=== PATIENT | female | born 1940 | race Caucasian/White ===

== ENCOUNTER 2025-02-07 14:38 | Inpatient (IN) | payer OTHER ==
[~2025-02-07] VITALS: Ht 160 cm; Wt 67.4 kg
[2025-02-07 15:23] VITALS: BP 163/69
[2025-02-07 15:53] LABS: BASO # 0.0 10*3/uL (0.0-0.1); BASO % 0.4 % (0.0-1.0); EOS # 0.0 10*3/uL (0.0-0.4); EOS % 0.0 % (1.0-4.0); MEAN CELL VOLUME 97.6 fl (81.0-99.0); MEAN CORPUSCULAR HGB 32.3 pg (27.0-31.0); MEAN PLATELET VOLUME 10.3 fl (9.6-12.3); MONO # 0.8 10*3/uL (0.1-1.0); MONO % 7.8 % (3.0-9.0); NEUT # 7.3 10*3/uL (2.3-7.9); NEUT % 73.0 % (47.0-73.0); NUCLEATED RED BLOOD CELL 0.0 % (0.0-0.0); NUCLEATED RED BLOOD CELL 0.0 10*3/uL (0.0-0.0); PLATELET COUNT AUTOMATED 317 10*3/uL (130-400); RED CELL DISTRI WIDTH 13.6 % (0-14.5)
[2025-02-07 16:09] LABS: ACT PARTIAL THROMBO TIME 29.8 SECONDS (20.0-32.1)
[2025-02-07 16:20] LABS: BUN 21 mg/dl (9-23); CPK 105 U/L (34-171); SGPT/ALT 14 U/L (5-49)
[2025-02-07 16:23] LABS: ETHYL ALCOHOL < 3.0 mg/dl (<3)
[2025-02-07 16:59] LABS: BILIRUBIN Negative (Negative); BLOOD 3+ (Negative); CLARITY Cloudy (Clear); COLOR Yellow (Yellow); KETONE 1+ (Negative); LEUKO ESTERASE Trace (Negative); NITRITE Negative (Negative); PH 5.5 (4.5-8.0); SPECIFIC GRAVITY 1.020 (1.001-1.030); UROBILINOGEN 1.0 E.U./dl (0.0-1.0)
[2025-02-07 17:12] LABS: URINE AMPHETAMINES Negative (1000ng/ml); URINE BARBITURATES Negative (200ng/ml); URINE BENZODIAZEPINES Negative (200ng/ml); URINE CANNABINOIDS (THC) Negative (50ng/ml); URINE COCAINE Negative (300ng/ml); URINE METHADONE Negative (300ng/ml); URINE OPIATES Negative (300ng/ml); URINE PHENCYCLIDINE Negative (25ng/ml)
[2025-02-07 17:19] LABS: BACTERIA 1+; EPITHELIAL CELLS 16-20; RBC 41-50 rbc/hpf (0-2)
[2025-02-07 20:47] VITALS: BP 100/64
[2025-02-07] MEDS ORDERED: LORazepam 1 MG TAB PO PRN (20:50)
[2025-02-07] MEDS ORDERED: hydrOXYzine hydrochloride 50 MG/ML VIAL IM PRN (20:50)
[2025-02-07 21:56] VITALS: BP 142/86
[2025-02-08] MEDS ORDERED: Menthol/Zinc Oxide 4 GM THIN T PRN (00:30)
[2025-02-08] MEDS ORDERED: ACETAMINOPHEN 325 MG TAB PO PRN (00:30)
[2025-02-08] MEDS ORDERED: MG-AL HYDROXIDE/SIMETICONE 30 ML UDC PO PRN (00:30)
[2025-02-08] MEDS ORDERED: LEXAPRO10 MG PO (01:50)
[2025-02-08] MEDS ORDERED: LEVOTHYROXINE100 MC1 PO (01:53)
[2025-02-08] MEDS ORDERED: MEMANTINE HCL5 MG PO (01:55)
[2025-02-08] MEDS ORDERED: SYSTANE ULTRA 010 M1 OU (01:56)
[2025-02-08] MEDS ORDERED: VALSARTAN-HCTZ1 EAC1 PO (01:57)
[2025-02-08] MEDS ORDERED: VITAMIN D350 MC2 PO (01:58)
[2025-02-08] MEDS ORDERED: TIMOLOL MALEAT OU (02:00)
[2025-02-08] MEDS ORDERED: DONEPEZIL HCL10 MG PO (02:01)
[2025-02-08] MEDS ORDERED: SEROQUEL50 MG PO (02:04)
[2025-02-08] MEDS ORDERED: Kenalog 0.5% Oi15 GM T (02:05)
[2025-02-08] MEDS ORDERED: [UNRECOGNIZED DRUG - OTHER] PO (02:13)
[2025-02-08] MEDS ORDERED: ATIVAN ORAL C2 MG/ML PO (02:18)
[2025-02-08] MEDS ORDERED: NYAMYC15 GM T (02:34)
[2025-02-08] MEDS ORDERED: SARNA SENSITIV222 ML T (02:35)
[2025-02-08] MEDS ORDERED: SYSTANE 0.3-0.415 ML OU (02:37)
[2025-02-08] MEDS ORDERED: Memantine Hydrochloride 5 MG TAB PO SCH (09:00)
[2025-02-08] MEDS ORDERED: risperiDONE 0.5 MG TAB PO SCH (09:00)
[2025-02-08] MEDS ORDERED: Rivastigmine Tartrate 4.6 MG/24 HR PATCH T SCH (09:00)
[2025-02-08 09:12] LABS: LDL CHOLESTEROL 178.0 mg/dL (9-159)
[2025-02-08 10:57] LABS: VITAMIN D, 25-HYDROXY 47.5 ng/mL (30-100)
[2025-02-08 20:00] VITALS: BP 133/77
[2025-02-08] MEDS ORDERED: Mirtazapine 15 MG TAB PO SCH (21:00)
[2025-02-08] MEDS ORDERED: ATORVASTATIN CALCIUM 20 MG TAB PO SCH (21:00)
[2025-02-08] MEDS ORDERED: DONEPEZIL 10 MG TAB PO SCH (22:00)
[2025-02-09 08:57] VITALS: BP 142/60
[2025-02-09] MEDS ORDERED: CYANOCOBALAMIN 1,000 MCG/ML VIAL IM SCH (09:00)
[2025-02-09 20:00] VITALS: BP 114/70
[2025-02-10 08:00] VITALS: BP 145/66
[2025-02-10 20:00] VITALS: BP 129/40
[2025-02-11 08:05] VITALS: BP 151/76
[2025-02-11 12:29] LABS: BUN 30.0 mg/dl (9-23)
[2025-02-11 13:52] LABS: BILIRUBIN Negative (Negative); BLOOD Negative (Negative); CLARITY Cloudy (Clear); COLOR Yellow (Yellow); KETONE Trace (Negative); LEUKO ESTERASE Trace (Negative); NITRITE Negative (Negative); PH 5.0 (4.5-8.0); SPECIFIC GRAVITY 1.015 (1.001-1.030); UROBILINOGEN 0.2 E.U./dl (0.0-1.0)
[2025-02-11 14:13] LABS: BACTERIA 4+; EPITHELIAL CELLS 21-30
[2025-02-11 20:00] VITALS: BP 130/70
[2025-02-12 08:08] VITALS: BP 157/78
[2025-02-12] MEDS ORDERED: Rivastigmine Tartrate 9.5 MG/24 HR PATCH T SCH (09:00)
[2025-02-12] MEDS ORDERED: HALOPERIDOL DECANOATE 50 MG/ML AMP IM SCH (09:40)
[2025-02-12 20:00] VITALS: BP 149/57
[2025-02-13 08:38] VITALS: BP 145/62
[2025-02-13 20:00] VITALS: BP 118/48
[2025-02-14 07:09] LABS: BASO # 0.1 10*3/uL (0.0-0.1); BASO % 0.5 % (0.0-1.0); EOS # 0.0 10*3/uL (0.0-0.4); EOS % 0.1 % (1.0-4.0); MEAN CELL VOLUME 97.0 fl (81.0-99.0); MEAN CORPUSCULAR HGB 31.9 pg (27.0-31.0); MEAN PLATELET VOLUME 10.7 fl (9.6-12.3); MONO # 1.5 10*3/uL (0.1-1.0); MONO % 12.1 % (3.0-9.0); NEUT # 8.0 10*3/uL (2.3-7.9); NEUT % 66.3 % (47.0-73.0); NUCLEATED RED BLOOD CELL 0.0 % (0.0-0.0); NUCLEATED RED BLOOD CELL 0.0 10*3/uL (0.0-0.0); PLATELET COUNT AUTOMATED 308 10*3/uL (130-400); RED CELL DISTRI WIDTH 13.9 % (0-14.5)
[2025-02-14 07:32] LABS: BUN 30 mg/dl (9-23)
[2025-02-14 07:35] LABS: BUN 30 mg/dl (9-23); SGPT/ALT 16 U/L (5-49)
[2025-02-14 08:00] VITALS: BP 130/53
[2025-02-14] MEDS ORDERED: RIVASTIGMINE 13.3 MG/24 HR TDM T SCH (09:00)
[2025-02-14 20:00] VITALS: BP 124/54
[2025-02-15 07:15] LABS: BASO # 0.1 10*3/uL (0.0-0.1); BASO % 0.7 % (0.0-1.0); EOS # 0.5 10*3/uL (0.0-0.4); EOS % 4.1 % (1.0-4.0); MEAN CELL VOLUME 97.3 fl (81.0-99.0); MEAN CORPUSCULAR HGB 32.1 pg (27.0-31.0); MEAN PLATELET VOLUME 10.7 fl (9.6-12.3); MONO # 1.3 10*3/uL (0.1-1.0); MONO % 10.7 % (3.0-9.0); NEUT # 7.7 10*3/uL (2.3-7.9); NEUT % 63.9 % (47.0-73.0); NUCLEATED RED BLOOD CELL 0.0 % (0.0-0.0); NUCLEATED RED BLOOD CELL 0.0 10*3/uL (0.0-0.0); PLATELET COUNT AUTOMATED 325 10*3/uL (130-400); RED CELL DISTRI WIDTH 13.7 % (0-14.5)
[2025-02-15 08:00] VITALS: BP 121/60
[2025-02-15 20:00] VITALS: BP 113/52
[2025-02-16 08:00] VITALS: BP 133/69
[2025-02-16 20:00] VITALS: BP 136/72
[2025-02-17 08:00] VITALS: BP 122/59
[2025-02-17] MEDS ORDERED: HALOPERIDOL DECANOATE 50 MG/ML AMP IM ONE (08:45)
[2025-02-17 20:00] VITALS: BP 126/60
[2025-02-18 08:00] VITALS: BP 125/63
[2025-02-18 20:00] VITALS: BP 151/63
[2025-02-19 07:25] LABS: BUN 53.0 mg/dl (9-23)
[2025-02-19] MEDS ORDERED: SODIUM CHLORIDE 0.9% 1,000 ML IV ONE (09:00)
[2025-02-19 09:20] VITALS: BP 138/79
[2025-02-19] MEDS ORDERED: ZINC SULFATE 220 MG TAB PO SCH (12:00)
[2025-02-19] MEDS ORDERED: Ondansetron Hydrochloride 4 MG/2 ML VIAL IV ONE (19:10)
[2025-02-19] MEDS ORDERED: DIAZEPAM IV ONE (19:22)
[2025-02-19] MEDS ORDERED: Ondansetron Hydrochloride 4 MG/2 ML VIAL ONE (19:29)
[2025-02-19 20:00] VITALS: BP 136/62
[2025-02-20 08:10] LABS: BUN 63.0 mg/dl (9-23)
[2025-02-20 08:38] VITALS: BP 134/66
[2025-02-20 08:50] LABS: BASO # 0.0 10*3/uL (0.0-0.1); BASO % 0.2 % (0.0-1.0); EOS # 0.0 10*3/uL (0.0-0.4); EOS % 0.0 % (1.0-4.0); MEAN CELL VOLUME 100.8 fl (81.0-99.0); MEAN CORPUSCULAR HGB 32.6 pg (27.0-31.0); MEAN PLATELET VOLUME 11.4 fl (9.6-12.3); MONO # 1.2 10*3/uL (0.1-1.0); MONO % 8.2 % (3.0-9.0); NEUT # 11.3 10*3/uL (2.3-7.9); NEUT % 78.9 % (47.0-73.0); NUCLEATED RED BLOOD CELL 0.0 % (0.0-0.0); NUCLEATED RED BLOOD CELL 0.0 10*3/uL (0.0-0.0); PLATELET COUNT AUTOMATED 230 10*3/uL (130-400); RED CELL DISTRI WIDTH 14.1 % (0-14.5)
[2025-02-20] MEDS ORDERED: SODIUM CHLORIDE 0.9% 1,000 ML IV ONE (09:55)
[2025-02-20 10:33] LABS: ABG BASE EXCESS 4.4 mmol/L (-2.0-3.0); ABG O2 SATURATION 95.8 % (94.0-98.0); ARTERIAL BLOOD GAS PH 7.45 (7.350-7.450); ARTERIAL BLOOD GAS PO2 77.9 mmHg (83.0-108.0)
[2025-02-20 11:18] LABS: BILIRUBIN Negative (Negative); BLOOD Negative (Negative); CLARITY Clear (Clear); COLOR Yellow (Yellow); KETONE Negative (Negative); LEUKO ESTERASE Negative (Negative); NITRITE Negative (Negative); PH 5.0 (4.5-8.0); SPECIFIC GRAVITY 1.015 (1.001-1.030); UROBILINOGEN 0.2 E.U./dl (0.0-1.0)
[2025-02-20 11:25] LABS: BACTERIA 2+; EPITHELIAL CELLS 0-2; RBC 0-2 rbc/hpf (0-2)
[2025-02-20 11:26] LABS: WBC 0-2 wbc/hpf (0-5)
[2025-02-20] MEDS ORDERED: Ondansetron Hydrochloride 4 MG TAB PO PRN (11:40)
[2025-02-20 20:00] VITALS: BP 139/62
[2025-02-21 06:45] LABS: BASO # 0.1 10*3/uL (0.0-0.1); BASO % 0.4 % (0.0-1.0); EOS # 0.2 10*3/uL (0.0-0.4); EOS % 1.5 % (1.0-4.0); MEAN CELL VOLUME 100.0 fl (81.0-99.0); MEAN CORPUSCULAR HGB 32.0 pg (27.0-31.0); MEAN PLATELET VOLUME 11.3 fl (9.6-12.3); MONO # 1.2 10*3/uL (0.1-1.0); MONO % 8.3 % (3.0-9.0); NEUT # 10.7 10*3/uL (2.3-7.9); NEUT % 75.8 % (47.0-73.0); NUCLEATED RED BLOOD CELL 0.0 % (0.0-0.0); NUCLEATED RED BLOOD CELL 0.0 10*3/uL (0.0-0.0); PLATELET COUNT AUTOMATED 226 10*3/uL (130-400); RED CELL DISTRI WIDTH 14.0 % (0-14.5)
[2025-02-21 07:17] LABS: BUN 46 mg/dl (9-23); SGPT/ALT < 7 U/L (5-49)
[2025-02-21 08:00] VITALS: BP 151/65
[2025-02-21] MEDS ORDERED: DEXTROSE 5% SALINE 0.45% 1,000 ML IV ONE (08:50)
[2025-02-21 20:00] VITALS: BP 108/64
[2025-02-22] MEDS ORDERED: HYDROmorphONE Hydrochloride 0.5 MG/0.5 ML SYRINGE IV ONE (00:05)
[2025-02-22] MEDS ORDERED: IOHEXOL 300 MG/ML 100 ML VIAL IV ONE (01:15)
[2025-02-22] MEDS ORDERED: BARIUM SULFATE 2% 450 ML BOT PO SCH (03:00)
[2025-02-22 08:00] VITALS: BP 101/44
[2025-02-22 08:44] LABS: BASO # 0.0 10*3/uL (0.0-0.1); BASO % 0.3 % (0.0-1.0); EOS # 0.3 10*3/uL (0.0-0.4); EOS % 2.2 % (1.0-4.0); MEAN CELL VOLUME 99.2 fl (81.0-99.0); MEAN CORPUSCULAR HGB 31.6 pg (27.0-31.0); MEAN PLATELET VOLUME 11.2 fl (9.6-12.3); MONO # 1.3 10*3/uL (0.1-1.0); MONO % 9.6 % (3.0-9.0); NEUT # 9.3 10*3/uL (2.3-7.9); NEUT % 70.0 % (47.0-73.0); NUCLEATED RED BLOOD CELL 0.0 % (0.0-0.0); NUCLEATED RED BLOOD CELL 0.0 10*3/uL (0.0-0.0); PLATELET COUNT AUTOMATED 206 10*3/uL (130-400); RED CELL DISTRI WIDTH 14.2 % (0-14.5)
[2025-02-22 09:05] LABS: BUN 55 mg/dl (9-23)
[2025-02-22 09:11] LABS: SGPT/ALT < 7 U/L (5-49)
[2025-02-22] MEDS ORDERED: SODIUM CHLORIDE 0.9% 1,000 ML IV ONE (09:30)
[2025-02-22 20:00] VITALS: BP 128/58
[2025-02-23 00:58] VITALS: BP 120/65
[2025-02-23 06:14] LABS: MEAN CELL VOLUME 99.7 fl (81.0-99.0); MEAN CORPUSCULAR HGB 31.8 pg (27.0-31.0); MEAN PLATELET VOLUME 11.4 fl (9.6-12.3); NUCLEATED RED BLOOD CELL 0.0 % (0.0-0.0); NUCLEATED RED BLOOD CELL 0.0 10*3/uL (0.0-0.0); PLATELET COUNT AUTOMATED 207 10*3/uL (130-400); RED CELL DISTRI WIDTH 13.9 % (0-14.5)
[2025-02-23 06:17] LABS: MANUAL DIFF REFLEX YES
[2025-02-23 06:23] LABS: BUN 46.0 mg/dl (9-23); SGPT/ALT 11.0 U/L (5-49)
[2025-02-23 07:25] LABS: PLATELET SUFFICIENCY NORMAL (NORMAL)
[2025-02-24] MEDS ORDERED: LOSARTAN POTASS50 M1 PO (12:26)
[2025-03-17] MEDS ORDERED: HALOPERIDOL DECANOATE 100 MG/ML AMP IM SCH (09:10)
== END 2025-02-23 10:36 | disposition short-term general hospital (02) | DRG 885 ==
LOC: ED 14:38 → 3N 18:21
PROVIDERS: Counselor Professional; Internal Medicine; Nurse Practitioner; Registered Nurse; Student in an Organized Health Care Education/Training Program; ADMIT Psychiatry & Neurology Psychiatry; ATTEND Psychiatry & Neurology Psychiatry
PROC: GZHZZZZ Group Psychotherapy (ICD-10-PCS; principal; 2025-02-12)
DX: F33.3 Major depressive disorder, recurrent, severe with psychotic symptoms (principal); F63.81 Intermittent explosive disorder; G30.9 Alzheimer's disease, unspecified; F02.80 Dementia in other diseases classified elsewhere, unspecified severity, without behavioral disturbance, psychotic disturbance, mood disturbance, and anxiety; E55.9 Vitamin D deficiency, unspecified; I10 Essential (primary) hypertension; E03.9 Hypothyroidism, unspecified; M81.0 Age-related osteoporosis without current pathological fracture; Z66 Do not resuscitate; F41.9 Anxiety disorder, unspecified; H40.9 Unspecified glaucoma; E86.0 Dehydration; E78.2 Mixed hyperlipidemia; Z51.5 Encounter for palliative care; Z79.899 Other long term (current) drug therapy

== ENCOUNTER 2025-02-23 11:10 | Inpatient (IN) | payer OTHER ==
[~2025-02-23] VITALS: Ht 160 cm; Wt 69.1 kg
[2025-02-23 11:10] VITALS: BP 118/51
[~2025-02-23 11:10] MED LIST: ATIVAN ORAL C2 MG/ML PO; DONEPEZIL HCL10 MG PO; Kenalog 0.5% Oi15 GM T; LEVOTHYROXINE100 MC1 PO; LEXAPRO10 MG PO; MEMANTINE HCL5 MG PO; NYAMYC15 GM T; SARNA SENSITIV222 ML T; SEROQUEL50 MG PO; SYSTANE 0.3-0.415 ML OU; SYSTANE ULTRA 010 M1 OU; TIMOLOL MALEAT OU; VALSARTAN-HCTZ1 EAC1 PO; VITAMIN D350 MC2 PO; [UNRECOGNIZED DRUG - OTHER] PO
[2025-02-23] MEDS ORDERED: Acetaminophen/Hydrocodone 5 MG/325 MG TABLET PO PRN (11:30)
[2025-02-23] MEDS ORDERED: Ondansetron Hydrochloride 4 MG/2 ML VIAL IV PRN (11:30)
[2025-02-23] MEDS ORDERED: ACETAMINOPHEN 325 MG TAB PO PRN (11:30)
[2025-02-23] MEDS ORDERED: ACETAMINOPHEN 650 MG SUPP R PRN (11:30)
[2025-02-23] MEDS ORDERED: DEXTROSE 5% SALINE 0.45% 1,000 ML IV SCH (11:30)
[2025-02-23] MEDS ORDERED: FOAM BANDAGE 1 EACH BANDAGE T ONE (11:37)
[2025-02-23] MEDS ORDERED: FOAM BANDAGE 5X5 T ONE (11:37)
[2025-02-23] MEDS ORDERED: FOAM BANDAGE HEEL T ONE (11:37)
[2025-02-23] MEDS ORDERED: CIPROFLOXACIN 200 ML IV SCH (15:00)
[2025-02-23 16:00] VITALS: BP 125/68
[2025-02-23] MEDS ORDERED: NYSTATIN 15 GM BOT T PRN (17:30)
[2025-02-23] MEDS ORDERED: TIMOLOL 0.5% OPHTHALMIC 5 ML BOTTLE OPH SCH (18:00)
[2025-02-23 20:00] VITALS: BP 105/41
[2025-02-23] MEDS ORDERED: Polyethylene Glycol 15 ML BOT OPH SCH (21:00)
[2025-02-24] VITALS: BP 117/70
[2025-02-24 06:19] LABS: SGPT/ALT 13 U/L (5-49)
[2025-02-24 06:23] LABS: BASO # 0.0 10*3/uL (0.0-0.1); BASO % 0.2 % (0.0-1.0); EOS # 0.0 10*3/uL (0.0-0.4); EOS % 0.0 % (1.0-4.0); MEAN CELL VOLUME 97.8 fl (81.0-99.0); MEAN CORPUSCULAR HGB 31.9 pg (27.0-31.0); MEAN PLATELET VOLUME 11.5 fl (9.6-12.3); MONO # 1.2 10*3/uL (0.1-1.0); MONO % 9.3 % (3.0-9.0); NEUT # 9.6 10*3/uL (2.3-7.9); NEUT % 75.5 % (47.0-73.0); NUCLEATED RED BLOOD CELL 0.0 % (0.0-0.0); NUCLEATED RED BLOOD CELL 0.0 10*3/uL (0.0-0.0); PLATELET COUNT AUTOMATED 183 10*3/uL (130-400); RED CELL DISTRI WIDTH 13.7 % (0-14.5)
[2025-02-24 06:24] LABS: BUN 31 mg/dl (9-23)
[2025-02-24 08:00] VITALS: BP 124/44
[2025-02-24] MEDS ORDERED: ESCITALOPRAM OXALATE 10 MG TAB PO SCH (09:00)
[2025-02-24] MEDS ORDERED: Cholecalciferol 2,000 UNIT TABLET (50 MCG) PO SCH (10:00)
[2025-02-24] MEDS ORDERED: HYDROCHLOROTHIAZIDE PO SCH (10:00)
[2025-02-24] MEDS ORDERED: VALSARTAN PO SCH (10:00)
[2025-02-24] MEDS ORDERED: CIPROFLOXACIN 200 ML IV SCH (10:00)
[2025-02-24] MEDS ORDERED: Fosfomycin Tromethamine 3 GM PDS PO ONE (10:40)
[2025-02-24 12:00] VITALS: BP 95/45
[2025-02-24] MEDS ORDERED: LOSARTAN POTASS50 M1 PO (12:26)
== END 2025-02-24 13:30 | DRG 641 ==
LOC: 5E 11:10
PROVIDERS: ADMIT Internal Medicine; ATTEND Internal Medicine
DX: R62.7 Adult failure to thrive (principal); F33.3 Major depressive disorder, recurrent, severe with psychotic symptoms; F02.B2 Dementia in other diseases classified elsewhere, moderate, with psychotic disturbance; E87.0 Hyperosmolality and hypernatremia; E86.0 Dehydration; D72.828 Other elevated white blood cell count; D53.9 Nutritional anemia, unspecified; E87.8 Other disorders of electrolyte and fluid balance, not elsewhere classified; G30.9 Alzheimer's disease, unspecified; H40.9 Unspecified glaucoma; E55.9 Vitamin D deficiency, unspecified; E03.9 Hypothyroidism, unspecified; I10 Essential (primary) hypertension; F41.9 Anxiety disorder, unspecified; E78.2 Mixed hyperlipidemia; Z66 Do not resuscitate; Z51.5 Encounter for palliative care; Z88.8 Allergy status to other drugs, medicaments and biological substances; Z79.899 Other long term (current) drug therapy

== ENCOUNTER 2025-02-24 12:20 | Inpatient (IN) | payer OTHER ==
[~2025-02-24] VITALS: Ht 160 cm; Wt 67.4 kg
[2025-02-24] MEDS ORDERED: LOSARTAN POTASS50 M1 PO (12:26)
[2025-02-24 13:52] VITALS: BP 109/47
[2025-02-24] MEDS ORDERED: LORazepam 1 MG TAB PO PRN (14:00)
[2025-02-24] MEDS ORDERED: hydrOXYzine hydrochloride 50 MG/ML VIAL IM PRN (14:00)
[2025-02-24] MEDS ORDERED: Water, Sterile 10 ML VIAL IM PRN (14:00)
[2025-02-24] MEDS ORDERED: ACETAMINOPHEN 325 MG TAB PO PRN (14:05)
[2025-02-24] MEDS ORDERED: MG-AL HYDROXIDE/SIMETICONE 30 ML UDC PO PRN (14:05)
[2025-02-24] MEDS ORDERED: Menthol/Zinc Oxide 4 GM THIN T PRN (14:10)
[2025-02-24] MEDS ORDERED: BISMUTH SUBSALICYLATE PO PRN (19:25)
[2025-02-24] MEDS ORDERED: Polyethylene Glycol 15 ML BOT OPH PRN (19:25)
[2025-02-24] MEDS ORDERED: NYSTATIN 15 GM BOT T PRN (19:25)
[2025-02-24] MEDS ORDERED: [UNRECOGNIZED DRUG - OTHER] T PRN (19:25)
[2025-02-24 20:00] VITALS: BP 128/59
[2025-02-24] MEDS ORDERED: Polyethylene Glycol 15 ML BOT OPH SCH (21:00)
[2025-02-24] MEDS ORDERED: risperiDONE 0.5 MG TAB PO SCH (21:00)
[2025-02-24] MEDS ORDERED: TIMOLOL 0.5% OPHTHALMIC 5 ML BOTTLE OPH SCH (21:00)
[2025-02-24] MEDS ORDERED: TRIAMCINOLONE ACETONIDE 15 GM TUBE T SCH (21:00)
[2025-02-25 06:32] LABS: BASO # 0.0 10*3/uL (0.0-0.1); BASO % 0.2 % (0.0-1.0); EOS # 0.0 10*3/uL (0.0-0.4); EOS % 0.1 % (1.0-4.0); MEAN CELL VOLUME 98.2 fl (81.0-99.0); MEAN CORPUSCULAR HGB 32.4 pg (27.0-31.0); MEAN PLATELET VOLUME 11.1 fl (9.6-12.3); MONO # 1.0 10*3/uL (0.1-1.0); MONO % 8.7 % (3.0-9.0); NEUT # 8.6 10*3/uL (2.3-7.9); NEUT % 75.8 % (47.0-73.0); NUCLEATED RED BLOOD CELL 0.0 % (0.0-0.0); NUCLEATED RED BLOOD CELL 0.0 10*3/uL (0.0-0.0); PLATELET COUNT AUTOMATED 191 10*3/uL (130-400); RED CELL DISTRI WIDTH 13.2 % (0-14.5)
[2025-02-25 07:09] LABS: LDL CHOLESTEROL 72 mg/dL (9-159); SGPT/ALT 15 U/L (5-49)
[2025-02-25 07:16] LABS: BUN 21 mg/dl (9-23); VALPROIC ACID (DEPAKENE) < 3.0 ug/ml (50-100)
[2025-02-25 08:00] VITALS: BP 139/56
[2025-02-25 08:05] LABS: VITAMIN D, 25-HYDROXY 43.6 ng/mL (30-100)
[2025-02-25] MEDS ORDERED: Cholecalciferol 2,000 UNIT TABLET (50 MCG) PO SCH (09:00)
[2025-02-25] MEDS ORDERED: Rivastigmine Tartrate 4.6 MG/24 HR PATCH T SCH (09:00)
[2025-02-25 20:00] VITALS: BP 118/71
[2025-02-25] MEDS ORDERED: Mirtazapine 15 MG TAB PO SCH (21:00)
[2025-02-26 08:43] VITALS: BP 121/65
[2025-02-26 19:24] VITALS: BP 127/48
[2025-02-27 08:25] VITALS: BP 125/56
[2025-02-27] MEDS ORDERED: MIRTAZAPINE15 M2 PO (10:20)
[2025-02-27] MEDS ORDERED: RIVASTIGMINE1 EACH T (10:20)
[2025-02-27] MEDS ORDERED: RISPERIDONE0.5 MG PO (10:20)
[2025-02-27] MEDS ORDERED: MEMANTINE HCL10 MG PO (10:20)
[2025-02-27] MEDS ORDERED: HALOPERIDO100 MG/11 IM (10:20)
[2025-02-27 20:00] VITALS: BP 136/71
[2025-02-28 09:49] VITALS: BP 140/53
[2025-02-28] MEDS ORDERED: VITAMIN D350 MCG PO (11:57)
[2025-03-24] MEDS ORDERED: HALOPERIDOL DECANOATE 100 MG/ML AMP IM SCH (09:00)
== END 2025-02-28 14:45 | DRG 883 ==
LOC: 3N 12:20
PROVIDERS: ADMIT Psychiatry & Neurology Psychiatry; ATTEND Psychiatry & Neurology Psychiatry
PROC: GZHZZZZ Group Psychotherapy (ICD-10-PCS; principal; 2025-02-26)
DX: F63.81 Intermittent explosive disorder (principal); E43 Unspecified severe protein-calorie malnutrition; N17.0 Acute kidney failure with tubular necrosis; F33.3 Major depressive disorder, recurrent, severe with psychotic symptoms; G30.9 Alzheimer's disease, unspecified; F02.80 Dementia in other diseases classified elsewhere, unspecified severity, without behavioral disturbance, psychotic disturbance, mood disturbance, and anxiety; H40.9 Unspecified glaucoma; E55.9 Vitamin D deficiency, unspecified; E03.9 Hypothyroidism, unspecified; F41.9 Anxiety disorder, unspecified; I10 Essential (primary) hypertension; E78.5 Hyperlipidemia, unspecified; R62.7 Adult failure to thrive; D53.9 Nutritional anemia, unspecified; Z66 Do not resuscitate; Z51.5 Encounter for palliative care; Z88.8 Allergy status to other drugs, medicaments and biological substances; Z82.3 Family history of stroke; Z68.26 Body mass index [BMI] 26.0-26.9, adult